=== PATIENT | female | born 1960 ===

== ENCOUNTER → 2024-02-24 | Outpatient (CLI) | payer OTHER ==
[2024-03-04 08:00] LABS: HPV HIGH RISK BY TMA Not Detected; HPV SOURCE Cervical
== END ==
LOC: LAB SHORT 17:41 → LAB 17:41
PROVIDERS: Physician Assistant
DX: Z01.419 Encounter for gynecological examination (general) (routine) without abnormal findings (principal)
CPT/HCPCS: 87624; G0123